=== PATIENT | male | born 1955 | race Caucasian/White ===

== ENCOUNTER 2023-01-05 12:59 | Emergency (ER) | payer MEDICARE ==
[~2023-01-05] VITALS: Ht 180.3 cm; Wt 99.8 kg
[2023-01-05 13:03] VITALS: BP 145/93
== END 2023-01-05 14:27 | disposition home or self-care (01) ==
LOC: ER 12:59
DX: S91.204A Unspecified open wound of right lesser toe(s) with damage to nail, initial encounter (principal); W22.8XXA Striking against or struck by other objects, initial encounter; Z88.5 Allergy status to narcotic agent
CPT/HCPCS: 11765; 99283-25